=== PATIENT | female | born 1965 | race Caucasian/White ===

== ENCOUNTER 2018-05-11 15:36 | Emergency (ER) | payer OTHER ==
[~2018-05-11] VITALS: Ht 165.1 cm; Wt 61.8 kg
[2018-05-11 15:36] VITALS: BP 108/65
[~2018-05-11 15:36] MED LIST: CETI10TA22 PO; CYCL-331 PO; NAPR-514 PO
[2018-05-11] MEDS ORDERED: IBUPROFEN 600 MG TABLET. PO ONE (15:45)
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
[2018-05-11] MEDS ORDERED: NAPR-683 PO (17:25)
[2018-05-11] MEDS ORDERED: IBUP600T16 PO (17:25)
== END 2018-05-11 17:30 | disposition home or self-care (01) ==
LOC: ER 15:36
DX: S42.454A Nondisplaced fracture of lateral condyle of right humerus, initial encounter for closed fracture (principal); S52.121A Displaced fracture of head of right radius, initial encounter for closed fracture; V19.9XXA Pedal cyclist (driver) (passenger) injured in unspecified traffic accident, initial encounter; Y93.89 Activity, other specified; Y92.89 Other specified places as the place of occurrence of the external cause; Y99.8 Other external cause status
CPT/HCPCS: 29105; 73080; 73200; 99284-25

== ENCOUNTER 2018-10-12 23:06 | Emergency (ER) | payer OTHER ==
[~2018-10-12] VITALS: Ht 165.1 cm; Wt 59.4 kg
[~2018-10-12 23:06] MED LIST changes: +IBUP600T16 PO; +NAPR-683 PO
--- NOTE | 2018-10-12 23:44 | PHYS DOC ---
Past History Past Medical History: No Pertinent History Past Surgical History: Other Smoking: Non-smoker Alcohol Use: Occasionally Drug Use: None Adult General Chief Complaint Chief Complaint: MUSCLE SPASM/CRAMP HPI HPI 53-year-old female presents with mid back pain. Patient has mid back spasms. She will have an episode that is intractable every 3-6 months. She has had this for years. She is usually able to control her spasms with oral muscle relaxants. She has only had to go to the emergency room one other time other than today. She is out of her medications. She has tried several medications at home and even one of her sons pain pills. It does not seem to be working. The patient did complete a triathlon today. After that, she was doing some weed pulling. This is when the pain started. She did not fall. She did not do anything exceedingly strenuous. She drank lots of water today and has eaten normal meals. She denies fever or chills. Review of Systems Review of Systems Constitutional: Denies fever or chills [] Eyes: Denies change in visual acuity, redness, or eye pain [] HENT: Denies nasal congestion or sore throat [] Respiratory: Denies cough or shortness of breath [] Cardiovascular: No additional information not addressed in HPI [] GI: Denies abdominal pain, nausea, vomiting, bloody stools or diarrhea [] : Denies dysuria or hematuria [] Musculoskeletal: Mid back pain[] Integument: Denies rash or skin lesions [] Neurologic: Denies headache, focal weakness or sensory changes [] Endocrine: Denies polyuria or polydipsia [] All other systems were reviewed and found to be within normal limits, except as documented in this note. Current Medications Current Medications Current Medications Medications (Trade) Dose Ordered Sig/Debbie Start Time Stop Time Status Last Admin Dose Admin Orphenadrine Citrate (Norflex) 60 mg 1X ONCE 10/12/18 23:45 10/12/18 23:46 Sodium Chloride 1,000 ml @ 1,000 mls/hr 1X ONCE 10/12/18 23:45 10/13/18 00:44 Allergies Allergies Allergies Coded Allergies Type Severity Reaction Last Updated Verified No Known Drug Allergies 12/21/13 No Physical Exam Physical Exam Constitutional: Well developed, well nourished, no acute distress, non-toxic appearance. [] HENT: Normocephalic, atraumatic, bilateral external ears normal, oropharynx moist, no oral exudates, nose normal. [] Eyes: PERRLA, EOMI, conjunctiva normal, no discharge. [] Neck: Normal range of motion, no tenderness, supple, no stridor. [] Cardiovascular:Heart rate regular rhythm, no murmur [] Lungs & Thorax: Bilateral breath sounds clear to auscultation [] Abdomen: Bowel sounds normal, soft, no tenderness, no masses, no pulsatile kathe s. [] Skin: Warm, dry, no erythema, no rash. [] Back: Thoracic paraspinal muscle tenderness with muscle spasm.[] Extremities: No tenderness, no cyanosis, no clubbing, ROM intact, no edema. [] Neurologic: Alert and oriented X 3, normal motor function, normal sensory function, no focal deficits noted. [] Psychologic: Affect normal, judgement normal, mood normal. [] EKG EKG [] Radiology/Procedures Radiology/Procedures [] Course & Med Decision Making Course & Med Decision Making Pertinent Labs and Imaging studies reviewed. (See chart for details) The patient's labs are unremarkable. I give the patient Norflex IM, 1 L normal saline. She continued to have pain and spasm. I added 2 mg of morphine and 25 mg of Benadryl IV. This took the edge and decreased the spasticity. I will add Flexeril. The patient would like to go home and rest. I will discharge her with a prescription for Flexeril. She is stable for discharge at this time. [] Dragon Disclaimer Dragon Disclaimer This electronic medical record was generated, in whole or in part, using a voice recognition dictation system. Departure Departure: Impression: Primary Impression: Spasm of thoracic back muscle Disposition: HOME, SELF-CARE Condition: STABLE Referrals: DARIN SANCHEZ (PCP) Patient Instructions: Muscle Strain Scripts Cyclobenzaprine Hcl (CYCLOBENZAPRINE HCL) 10 Mg Tablet 1 TAB PO TID PRN for MUSCLE SPASMS, #30 TAB Prov: RANI MAZARIEGOS DO 10/13/18 RANI MAZARIEGOS DO Oct 12, 2018 23:44
[2018-10-12] MEDS ORDERED: IV NORMAL SALINE 1,000ML 1,000 ML IV ONE (23:45)
[2018-10-12] MEDS ORDERED: ORPHENADRINE CITRATE 60 MG/2 ML VIAL. IM ONE (23:45)
[2018-10-12 23:57] VITALS: BP 121/75
[2018-10-13 00:04] LABS: BASO % 1 % (0-3); EOS # 0.2 x10^3/uL (0.0-0.7); EOS % 4 % (0-3); HEMATOCRIT 38.3 % (36.0-47.0); HEMOGLOBIN 12.9 g/dL (12.0-15.5); LYMPH # 1.8 x10^3/uL (1.0-4.8); LYMPH % 34 % (24-48); MEAN CORPUSCULAR HEMOGLOBIN 32 pg (25-35); MEAN CORPUSCULAR HGB CONC 34 g/dL (31-37); MEAN CORPUSCULAR VOLUME 94 fL (79-100); MONO # 0.5 x10^3/uL (0.0-1.1); MONO % 10 % (0-9); NEUT # 2.6 x10^3uL (1.8-7.7); NEUT % 51 % (31-73); PLATELET COUNT 217 x10^3/uL (140-400); RED BLOOD COUNT 4.09 x10^6/uL (3.50-5.40); RED CELL DISTRIBUTION WIDTH 13.5 % (11.5-14.5); WHITE BLOOD COUNT 5.2 x10^3/uL (4.0-11.0)
[2018-10-13 00:14] LABS: ALBUMIN 4.4 g/dL (3.4-5.0); ALBUMIN/GLOBULIN RATIO 1.5 (1.0-1.7); CALCIUM 9.8 mg/dL (8.5-10.1); CREATININE 0.8 mg/dL (0.6-1.0); GFR 74.5; POTASSIUM 3.8 mmol/L (3.5-5.1); TOTAL BILIRUBIN 0.3 mg/dL (0.2-1.0); TOTAL PROTEIN 7.3 g/dL (6.4-8.2)
[2018-10-13] MEDS ORDERED: ONDANSETRON PF 4 MG/2 ML VIAL. IV ONE (01:00)
[2018-10-13] MEDS ORDERED: diphenhydrAMINE 50 MG/ML VIAL IVP ONE (01:00)
[2018-10-13] MEDS ORDERED: MORPHINE SULFATE 2 MG/ML DISP.SYRIN. IV ONE (01:00)
[2018-10-13] MEDS ORDERED: CYCL-331 PO (01:24)
[2018-10-13] MEDS ORDERED: CYCLOBENZAPRINE 10 MG TABLET. PO ONE (01:30)
== END 2018-10-13 01:53 | disposition home or self-care (01) ==
LOC: ER 23:06
DX: M62.830 Muscle spasm of back (principal); M54.6 Pain in thoracic spine
CPT/HCPCS: 36415; 80053; 85025; 96372; 96374; 96375; 99284; J1200; J2270; J2360; J2405; J7030